=== PATIENT | female | born 1945 | race American Indian/Alaskan Native ===

== ENCOUNTER 2019-12-09 18:08 | Emergency (ER) | payer MEDICARE ==
--- NOTE | 2019-12-09 19:20 | Emergency Department Report ---
Blank Doc - Documentation Documentation: 74-year-old female that presents with right knee pain. Stated has started to left knee and now started to have right knee pain. This initial assessment/diagnostic orders/clinical plan/treatment(s) is/are subject to change based on patient's health status, clinical progression and re- assessment by fellow clinical providers in the ED. Further treatment and workup at subsequent clinical providers discretion. Patient/guardians urged not to elope from the ED as their condition may be serious if not clinically assessed and managed. Initial orders include: 1- Patient sent to [facility] for further evaluation and treatment 2- xrays
--- NOTE | 2019-12-09 20:01 | XRay Report ---
Right knee-3 views INDICATION: knee pain. COMPARISON: None. IMPRESSION: No acute osseous or soft tissue abnormality. Moderate tricompartmental DJD with sligh t lateral subluxation of the tibia relative to the femur. Signer Name: Anthony Pineda MD Signed: 12/09/2019 7:56 PM Workstation Name: [id number]
--- NOTE | 2019-12-09 23:06 | Emergency Department Report ---
ED Lower Extremity HPI - General Chief Complaint: Extremity Injury, Lower Stated Complaint: LFT KNEE PAIN Time Seen by Provider: 12/09/19 19:18 Source: patient Mode of arrival: Ambulatory Limitations: Physical Limitation - History of Present Illness Initial Comments: Ms. Merritt is a 74-year-old -British female with a history of osteo- arthralgia to bilateral knees presents for right knee pain today. She denies fall injury or trauma. States pain is 5/10 today. Pain is exacerbated by weigh bearing. Pain is relieved by nothing. Patient not currently taking NSAIDs MD Complaint: other (right knee pain ) Onset/Timin -: week(s) Injury: Knee: Right Type of Injury: unknown Place: home Severity: moderate Severity scale (0 -10): 5 Improves With: NSAID Worsens With: weight bearing, movement, palpation Context: walking Other Symptoms: loss of consciousness Associated Symptoms: ambulatory. denies: snap/pop sensation, swelling, numbness, tingling - Related Data Previous Rx's Medication Instructions Recorded Last Taken Type Acetaminophen [Tylenol] 1,000 mg PO Q6HR #30 tablet 12/09/19 Unknown Rx Diclofenac 1% [Diclofenac 1% 1 applic TP QID PRN #1 tube 12/09/19 Unknown Rx topical gel] Allergies Allergy/AdvReac Type Severity Reaction Status Date / Time No Known Allergies Allergy Unverified 12/09/19 18:12 ED Review of Systems ROS: Stated complaint: LFT KNEE PAIN Other details as noted in HPI Constitutional: denies: chills, fever Eyes: denies: eye pain, eye discharge, vision change ENT: denies: ear pain, throat pain Respiratory: denies: cough, shortness of breath, wheezing Cardiovascular: denies: chest pain, palpitations Endocrine: no symptoms reported Gastrointestinal: denies: abdominal pain, nausea, diarrhea Genitourinary: denies: urgency, dysuria, discharge Musculoskeletal: denies: back pain, joint swelling, arthralgia Skin: denies: rash, lesions Neurological: denies: headache, weakness, paresthesias Psychiatric: denies: anxiety, depression Hematological/Lymphatic: denies: easy bleeding, easy bruising ED Past Medical Hx - Past Medical History Previous Medical History?: No - Surgical History Past Surgical History?: No - Social History Smoking Status: Never Smoker Substance Use Type: None - Medications Home Medications: Home Medications Medication Instructions Recorded Confirmed Last Taken Type Acetaminophen [Tylenol] 1,000 mg PO Q6HR #30 tablet 12/09/19 Unknown Rx Diclofenac 1% [Diclofenac 1% 1 applic TP QID PRN #1 tube 12/09/19 Unknown Rx topical gel] ED Physical Exam - General Limitations: Physical Limitation General appearance: alert, in no apparent distress - Head Head exam: Present: atraumatic, normocephalic - Eye Eye exam: Present: normal appearance, PERRL - ENT ENT exam: Present: mucous membranes moist - Neck Neck exam: Present: normal inspection, full ROM. Absent: tenderness - Respiratory Respiratory exam: Present: normal lung sounds bilaterally - Cardiovascular Cardiovascular Exam: Present: regular rate - GI/Abdominal GI/Abdominal exam: Present: soft, normal bowel sounds. Absent: distended, tenderness, bruit, hernia - Rectal Rectal exam: Present: deferred - Extremities Exam Extremities exam: Present: normal inspection, full ROM, tenderness - Expanded Lower Extremity Exam Right Knee exam: Present: full ROM, tenderness, pain w/ pronation/supination, full knee extension. Absent: swelling, abrasion, laceration, ecchymosis, deformity, crepidus, dislocation, erythema, effusion, posterior draw sign Lower Leg exam: Present: full ROM. Absent: tenderness Ankle exam: Present: full ROM. Absent: tenderness Foot/Toe exam: Present: full ROM. Absent: tenderness, swelling Neuro vascular tendon exam: Absent: pulse deficit, motor deficit, sensory deficit, tendon deficit Gait: Positive: observed and normal - Back Exam Back exam: Present: normal inspection, full ROM. Absent: tenderness, vertebral tenderness - Neurological Exam Neurological exam: Present: alert, oriented X3, CN II-XII intact, normal gait - Psychiatric Psychiatric exam: Present: normal affect, normal mood - Skin Skin exam: Present: warm, dry, intact, normal color. Absent: rash ED Course Vital Signs 12/09/19 18:17 Temperature 97.8 F Pulse Rate 81 Respiratory 18 Rate Blood Pressure 205/91 [Left] O2 Sat by Pulse 100 Oximetry ED Lower Extremity MDM - Radiology Data Radiology results: report reviewed, image reviewed Findings [facility] [address] [place] [address] XRay Report Signed Patient: MARGARITA MERRITT MR#: [id number] : 1945 Acct:[id number] Age/Sex: 74 / F ADM Date: 12/09/19 Loc: ED Attending Dr: Ordering Physician: ROULA MEDEIROS NP Date of Service: 12/09/19 Procedure(s): XR knee 3V RT Accession Number(s): [id number] cc: ROULA MEDEIROS NP Fluoro Time In Minutes: Right knee-3 views INDICATION: knee pain. COMPARISON: None. IMPRESSION: No acute osseous or soft tissue abnormality. Moderate tricompartmental DJD with slight lateral subluxation of the tibia relative to the femur. Signer Name: Anthony Pineda MD Signed: 12/09/2019 7:56 PM Workstation Name: [id number] Transcribed By: APRIL Dictated By: Anthony Pineda MD Electronically Authenticated By: Anthony Pineda MD Signed Date/Time: 12/09/191955 DD/ 55 TD/TT: - Medical Decision Making X-ray no fracture no soft tissue abnormality there is degenerative joint changes chronic, plan Tylenol analgesic balm, short burst steroids, follow-up with Ortho, follow-up with PCP, Return to ED should symptoms worsen patient verbalizes agreement and understanding with discharge plan. Patient DC'd home in stable condition at this time Critical care attestation.: If time is entered above; I have spent that time in minutes in the direct care of this critically ill patient, excluding procedure time. ED Disposition Clinical Impression: Arthralgia Qualifiers: Joint pain location: knee Laterality: right Qualified Code(s): M25.561 - Pain in right knee Disposition: DC-01 TO HOME OR SELFCARE Is pt being admited?: No Does the pt Need Aspirin: No Condition: Stable Instructions: Knee Pain (ED), Osteoarthritis (ED) Prescriptions: Acetaminophen [Tylenol] 1,000 mg PO Q6HR #30 tablet Diclofenac 1% [Diclofenac 1% topical gel] 1 applic TP QID PRN #1 tube PRN Reason: pain Referrals: PRIMARY CARE, [Primary Care Provider] - 3-5 Days Forms: Work/School Release Form(ED) Time of Disposition: 23:25
[2019-12-09] MEDS ORDERED: traMADol 50 MG TAB PO ONE (23:07)
[2019-12-09] MEDS ORDERED: predniSONE 20 MG TAB PO ONE (23:09)
[2019-12-09 23:49] VITALS: BP 186/86
== END 2019-12-09 23:50 | disposition home or self-care (01) ==
LOC: ED 18:08
DX: M25.561 Pain in right knee (principal); Z79.899 Other long term (current) drug therapy
CPT/HCPCS: 73562; 99283; J7512